=== PATIENT | female | born 1945 | race Caucasian/White ===

== ENCOUNTER 2021-12-06 10:10 | Outpatient (CLI) | payer MEDICARE, BC, SELFPAY ==
[2021-12-06 11:38] LABS: Chloride* 100 mmol/L (96-114)
[2021-12-06 11:39] LABS: Potassium* 4.4 mmol/L (3.6-5.1); Sodium* 136 mmol/L (135-149)
[2021-12-06 11:41] LABS: Creatinine* 0.7 mg/dL (0.5-1.5); Estimated Glomerular Filt Rate 90 ml/min
[2021-12-06 11:42] LABS: Blood Urea Nitrogen* 14 mg/dL (7-30); Calcium* 9.8 mg/dL (8.4-10.6); Carbon Dioxide* 31 mmol/L (20-32); Glucose* 89 mg/dL (60-115)
== END 2021-12-06 10:11 | disposition home or self-care (01) ==
LOC: NFLDREF 10:10
PROVIDERS: PCP Family Medicine; Visit Provider Family Medicine
DX: Z01.818 Encounter for other preprocedural examination (principal)
CPT/HCPCS: 80048

== ENCOUNTER 2022-03-07 13:45 | Outpatient (CLI) | payer OTHER, SELFPAY ==
--- NOTE | 2022-03-07 14:00 | CRLHL7_ITS ---
For Patients: As a result of the Cures Act, medical imaging exams and procedure reports are released immediately into your electronic medical record. You may view this report before your referring provider. If you have questions, please contact your health care provider. DXA BONE MINERAL DENSITY STUDY, 03/07/2022 Reason for exam: Asymptomatic menopausal. Screening. Current height (inches): 56.5 Weight (lbs.): 121.0 Menopause age: 51 Ethnicity: White 1. Have you had a previous hip or vertebral fracture? No. 2. Have you had any fractures during your adult life which did not result from significant trauma (e.g., auto accident)? No. 3. Did either of your parents have a hip fracture? No. 4. Do you smoke? No. 5. Have you ever taken Glucocorticoids? No. 6. Do you have rheumatoid arthritis? No. 7. Do you have secondary osteoporosis? No. 8. Do you drink 3 or more alcoholic drinks per day? No. 9. Are you being treated for osteoporosis? No. 10. Have you ever taken any of the following medications: Actonel, Evista, Fosamax, Miacalcin, Reclast, Boniva, Forteo, HRT (i.e., estrogen/hormone therapy), Protelos, Prolia, Vitamin D, Calcium, other ??? please specify. ANSWER: Yes; Fosamax, vitamin D, calcium. 11. Do you have any of the following medical conditions: Anorexia or bulimia, asthma or emphysema, end stage renal disease, hyperparathyroidism, any seizure disorders, cancer, inflammatory bowel diseases, hysterectomy, other ??? please specify. ANSWER: No. 12. What was your maximum height (inches)? 56.5. 13. Do you perform weightbearing exercise regularly? No. 14. Do you regularly consume dairy products? No. 15. Do you drink caffeinated beverages? No. 16. At what age did your period start? 13. 17. Are you premenopausal? No. 18. How many full-term pregnancies have you had? 1. 19. Have you ever missed your period for more than 6 months in a row (not including or menopause)? No. TECHNIQUE: Bone mineral density study was performed using the [employer]. FINDINGS: The results of the study expressed as bone mineral density (BMD) are as follows: Lumbar Spine L1 to L4: BMD: 0.775 g/cm2. T-score: -2.5. Z-score: -0.1. Neck Left: BMD: 0.455 g/cm2. T-score: -3.6. Z-score: -1.5. Right: BMD: 0.527 g/cm2. T-score: -2.9. Z-score: -0.8. Total Left: BMD: 0.523 g/cm2. T-score: -3.4. Z-score: -1.6. Right: BMD: 0.604 g/cm2. T-score: -2.8. Z-score: -1.0. IMPRESSION: Osteoporosis. IGLESIA RODRIGUEZ M.D. Diagnostic Radiologist [email or web address] Transcribed: 1:[address]/Dictated by: Iglesia Rodriguez MD @ 03/08/2022 10:43:00 AM (Electronically Signed)
== END 2022-03-07 13:46 | disposition home or self-care (01) ==
LOC: RAD 13:46
PROVIDERS: PCP Family Medicine; Visit Provider Family Medicine
DX: Z13.820 Encounter for screening for osteoporosis (principal); M81.0 Age-related osteoporosis without current pathological fracture; Z78.0 Asymptomatic menopausal state
CPT/HCPCS: 77080

== ENCOUNTER 2022-03-13 08:56 | Outpatient (CLI) | payer MEDICARE, OTHER, SELFPAY ==
[2022-03-13 11:44] LABS: Vitamin D 25 Hydroxy* 31 ng/mL (30-80)
== END 2022-03-13 08:57 | disposition home or self-care (01) ==
LOC: NFLDREF 08:56
PROVIDERS: PCP Family Medicine; Visit Provider Family Medicine
DX: M81.0 Age-related osteoporosis without current pathological fracture (principal)
CPT/HCPCS: 82306

== ENCOUNTER 2022-04-09 15:30 | Outpatient (RCR) | payer MEDICARE, BC, SELFPAY | END 2022-09-06 23:59 | disposition home or self-care (01) | PROVIDERS: PCP Family Medicine; Visit Provider Orthopaedic Surgery | DX: M17.12 Unilateral primary osteoarthritis, left knee (principal); Z51.89 Encounter for other specified aftercare | CPT/HCPCS: 97110; 97140; 97162; 97164 ==

== ENCOUNTER 2022-04-18 20:50 | Emergency (ER) | payer MEDICARE, SELFPAY ==
[2022-04-18] VITALS (16 sets, daily range): BP systolic 144–182; BP diastolic 77–84; PULSE 57–67; RESP 16; TEMP 35.7; O2SAT 95–99
--- NOTE | 2022-04-18 21:31 | CRLHL7_ITS ---
For Patients: As a result of the Century Cures Act, medical imaging exams and procedure reports are released immediately into your electronic medical record. You may view this report before your referring provider. If you have questions, please contact your health care provider. INDICATION: Chest pain. TECHNIQUE: Chest 1 view. COMPARISON: February 04, 2019. FINDINGS: Cardiovascular and mediastinum: Cardiomediastinal silhouette is within normal limits. Lungs and pleural spaces: Lungs are clear. No evidence of pleural effusion. No pneumothorax identified. Bones and soft tissues: Unremarkable. IMPRESSION: No acute cardiopulmonary process identified. No significant interval change. Dictated by Yamile Polanco MD @ 04/18/2022 10:09:00 PM (Electronically Signed)
[2022-04-18] MEDS: IBUPROFEN 200 MG TABLET 600 MG PO (22:03)
[2022-04-18 22:19] LABS: Chloride* 104 mmol/L (96-114); Potassium* 3.6 mmol/L (3.6-5.1); Sodium* 139 mmol/L (135-149)
[2022-04-18 22:20] LABS: Basophils Absolute Auto 0.03 K/uL (0.00-0.30); Basophils Percent Auto 0.6 % (0.0-3.0); Eosinophils Absolute Auto 0.08 K/uL (0.00-0.50); Eosinophils Percent Auto 1.6 % (0.0-7.0); Hemoglobin* 12.8 gm/dL (12.0-16.0); Immature Granulocytes Abs Auto 0.03 K/uL (0.00-0.30); Immature Granulocytes Pct Auto 0.6 %; Lymphocytes Absolute Auto 1.52 K/uL (0.90-2.90); Lymphocytes Percent Auto 30.4 % (20-44); Mean Corpuscular HGB Conc 33 gm/dL (32-36); Mean Corpuscular Hemoglobin 30 pg (26-34); Mean Corpuscular Volume 93 fL (80-100); Monocytes Percent Auto 13.8 % (0.0-11.0); Neutrophils Absolute Auto 2.65 K/uL (1.7-7.0); Platelet Count* 251 K/uL (140-440); RDW Coefficient of Variation % 12.4 % (11.5-15.5); Red Blood Count 4.21 m/uL (4.00-5.20)
[2022-04-18 22:22] LABS: Blood Urea Nitrogen* 16 mg/dL (7-30); Carbon Dioxide* 30 mmol/L (20-32); Creatinine* 0.7 mg/dL (0.5-1.5); Estimated Glomerular Filt Rate 90 ml/min; Glucose* 94 mg/dL (60-115)
[2022-04-18 22:23] LABS: Calcium* 9.5 mg/dL (8.4-10.6)
[2022-04-18 22:24] LABS: D Dimer Quantitative* 0.78 ug/ml (0.00-0.50); Slide Review Reflex No
[2022-04-18 22:30] LABS: C Reactive Protein* < 0.5 mg/dL (0.5-1.0)
[2022-04-18 22:39] LABS: NT Pro B Type NatriureticPept* 126 pg/mL; Troponin I* < 0.01 ng/mL (0.01-0.04)
--- NOTE | 2022-04-18 22:41 | CRLHL7_ITS ---
For Patients: As a result of the Century Cures Act, medical imaging exams and procedure reports are released immediately into your electronic medical record. You may view this report before your referring provider. If you have questions, please contact your health care provider. INDICATION: .Left-sided pleuritic chest pain, elevated d-dimer TECHNIQUE: CT chest PE was acquired with 95 cc Isovue 370 IV contrast. COMPARISON: None FINDINGS: Pulmonary Arteries: No CT evidence of pulmonary thromboembolic disease. No pulmonary hypertension or right ventricular strain. Heart and Mediastinum: The visualized portions of the thyroid are normal. No axillary or supraclavicular lymphadenopathy. No mediastinal, hilar or retrocrural lymphadenopathy. Normal heart size. Normal caliber aorta. Lungs and Airways: No mass or consolidation. No endoluminal lesion. Pleura: The pleural spaces are normal. Abdomen: The visualized upper abdominal organs are unremarkable. Surgical clips abutting the left kidney. Bones and soft tissues: The skeletal structures and soft tissues of the chest wall are unremarkable. IMPRESSION: 1. No CT evidence of pulmonary thromboembolic disease. 2. No intrathoracic mass or consolidation. Please note that all CT scans at this facility use dose modulation, iterative reconstruction, and/or weight-based dosing when appropriate to reduce radiation dose to as low as reasonably achievable. Dictated by Iglesia Baker MD @ 04/18/2022 11:30:19 PM (Electronically Signed)
[2022-04-18] MEDS: 0.9 % SODIUM CHLORIDE 1000 ml 1,000 ML IV (22:56)
--- NOTE | 2022-04-18 23:33 | ED_ITS ---
HPI - Chest Pain General Chief Complaint: Chest Pain Stated Complaint: Chest pains Time Seen by Provider: 04/18/22 21:10 History of Present Illness HPI narrative: 76-year-old woman presenting to the emergency department with complaint of left- sided pleuritic chest pain beginning in the change coordinator hours about 17 hours ago. Described possibly as sharp in the left low mid axillary line and seems to have progressed to the upper back/left shoulder area. No radicular symptoms otherwise. Independent of position changes. Has felt gassy and took a Prilosec. Also some Tylenol which she thinks might have been helpful. Not exactly short of breath just pleuritic is noted. No fever no cough or cold symptoms. No rashes. No neck or back pain otherwise. She does not have a history of blood clots that she is aware of. No cardiovascular disease. Related Data Home Medications Medication Instructions Recorded Confirmed propranolol 60 mg capsule,24 60 mg PO QDAY PRN 11/29/21 03/29/22 hr,extended release cholecalciferol (vitamin D3) 50 50 mcg PO QDAY 03/29/22 03/29/22 mcg (2,000 unit) capsule vitamin B complex (B 1 tab PO QDAY 03/29/22 03/29/22 Complex-Vitamin B12 tablet) Allergies Allergy/AdvReac Type Severity Reaction Status Date / Time No Known Drug Allergies Allergy Verified 04/18/22 23:17 Review of Systems Status of ROS Reports: 6 or more systems reviewed and unremarkable except as noted in History and below PFSH PFSH Medical History Cancer of kidney (2006) Cyst of ovary History of abnormal cervical Papanicolaou smear (2015) History of colonic polyps NSAID long-term use Surgical History History of colposcopy (2010) History of cryosurgery (2006) History of unilateral oophorectomy (1984) Family History Mother Valvular heart disease Sister Myocardial infarction, Onset Age: 74 Social History Narrative: , 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 NAD. Does seem mildly anxious. Slim. Skin is warm and dry. No evidence of rash or blisters. Neck is supple nontender. She is sore to palpation however in the left trapezial and periscapular musculature. Moves her arm elevating overhead without notable difficulty. She is well-perfused with equal pulses bilaterally. Lungs are clear. She is not actually splinting. No tachypnea or particularly labored breathing. Area where she has most pain though with deeper inspiration is the left low mid axillary line is demonstrated. Palpation this area does not elicit pain. Abdomen is soft protuberant nontender. No masses appreciated. CV RRR no MR G. lower extremities are without edema or pain to palpation. Negative Homans. Const Vital Signs, click to edit/add: Vital Signs - 24 hr 04/18/22 20:58 04/18/22 21:08 04/18/22 21:15 Temperature 96.2 F L Pulse Rate 61 63 Pulse Rate [Left Pulse Oximeter] 60 Respiratory Rate 16 Blood Pressure Blood Pressure [Right Upper Arm] 182/79 H Pulse Oximetry 99 98 98 Oxygen Delivery Method Room Air 04/18/22 21:21 04/18/22 21:30 04/18/22 21:59 Temperature Pulse Rate 62 62 58 L Pulse Rate [Left Pulse Oximeter] Respiratory Rate Blood Pressure 180/84 H Blood Pressure [Right Upper Arm] Pulse Oximetry 98 98 96 Oxygen Delivery Method 04/18/22 22:00 04/18/22 22:04 04/18/22 22:15 Temperature Pulse Rate 58 L 58 L 59 L Pulse Rate [Left Pulse Oximeter] Respiratory Rate Blood Pressure Blood Pressure [Right Upper Arm] Pulse Oximetry 97 97 97 Oxygen Delivery Method 04/18/22 22:30 04/18/22 22:31 Temperature Pulse Rate 57 L 61 Pulse Rate [Left Pulse Oximeter] Respiratory Rate 16 Blood Pressure 144/77 H 144/77 H Blood Pressure [Right Upper Arm] Pulse Oximetry 95 95 Oxygen Delivery Method Documenting provider has reviewed patient's vital signs: yes Course Vital Signs Vital signs: Initial Vital Signs Temperature 96.2 F L 04/18/22 20:58 Temperature Source Temporal Artery Scan 04/18/22 20:58 Pulse Rate 60 04/18/22 20:58 Pulse Rhythm 04/18/22 20:58 Respiratory Rate 16 04/18/22 20:58 Blood Pressure 182/79 H 04/18/22 20:58 Blood Pressure Mean 113 04/18/22 20:58 Pulse Oximetry 99 04/18/22 20:58 Oxygen Delivery Method 04/18/22 20:58 Vital Signs Temperature 96.2 F L 04/18/22 20:58 Pulse Rate 60 04/18/22 20:58 Respiratory Rate 16 04/18/22 20:58 Blood Pressure 182/79 H 04/18/22 20:58 Pulse Oximetry 99 04/18/22 20:58 Oxygen Delivery Method 04/18/22 20:58 Temperature 96.2 F L 04/18/22 20:58 Pulse Rate 65 04/18/22 23:32 Respiratory Rate 16 04/18/22 23:30 Blood Pressure 160/77 H 04/18/22 23:31 Pulse Oximetry 96 04/18/22 23:32 Oxygen Delivery Method 04/18/22 20:58 MDM - Chest Pain MDM Narrative Medical decision making narrative: Have concern of potential pulmonary embolus a. Seems to be reproducible chest wall pain except in the area of origin. This does have some elements of musculoskeletal/chest wall pain. There is no noted trauma. Could be pneumonia but no fever no cough or cold symptoms otherwise. Vascular disruption? Ischemic cardio vascular event. Possible dysrhythmia. Pneumothorax/pneumomediastinum. She would like some ibuprofen potentially for discomfort. Will check some labs. Chest x-ray reviewed by me is without pneumothorax or pneumomediastinum. Normal cardiac silhouette. No airspace disease appreciated. Upon reassessment is still uncomfortable but calmly reading. while I would like to dismiss this D-dimer and suspect it not representing pulmonary embolus, appears to be chest wall pain generally however elevated D-dimer is in this setting I think warranting next level imaging. The CT IV contrast as requested. Also given L of normal saline IV. I did review CT angio chest images. Do not see significant airspace disease. Radiology over-read noting no thromboembolic event. Labs overall reassuring without indication of cardiovascular injury or strain. See patient discharge information. Medical Records Data Attestation: I reviewed the patient's medical records. Lab Data Attestation: I reviewed the patient's lab results. Labs: Lab Results 04/18/22 04/18/22 04/18/22 Range/Units 21:30 21:30 21:30 WBC 5.00 (4.50-11.00) K/uL RBC 4.21 (4.00-5.20) m/uL Hgb 12.8 (12.0-16.0) gm/dL Hct 39.0 (33.0-51.0) % MCV 93 (80-100) fL MCH 30 (26-34) pg MCHC 33 (32-36) gm/dL RDW Coeff of Marky 12.4 (11.5-15.5) % Plt Count 251 (140-440) K/uL Neut % (Auto) 53.0 (42.0-72.0) % Lymph % (Auto) 30.4 (20-44) % Childress % (Auto) 13.8 H (0.0-11.0) % Eos % (Auto) 1.6 (0.0-7.0) % Baso % (Auto) 0.6 (0.0-3.0) % Neut # (Auto) 2.65 (1.7-7.0) K/uL Lymph # (Auto) 1.52 (0.90-2.90) K/uL Childress # (Auto) 0.70 (0.00-0.90) K/UL Eos # (Auto) 0.08 (0.00-0.50) K/uL Baso # (Auto) 0.03 (0.00-0.30) K/uL D-Dimer Quant (PE/DVT) 0.78 H (0.00-0.50) ug/ml Sodium 139 (135-149) mmol/L Potassium 3.6 (3.6-5.1) mmol/L Chloride 104 (96-114) mmol/L Carbon Dioxide 30 (20-32) mmol/L BUN 16 (7-30) mg/dL Creatinine 0.7 (0.5-1.5) mg/dL Estimated GFR 90 ml/min Glucose 94 (60-115) mg/dL Calcium 9.5 (8.4-10.6) mg/dL Troponin I < 0.01 L (0.01-0.04) ng/mL C-Reactive Protein < 0.5 L (0.5-1.0) mg/dL NT-Pro-B Natriuret Pep 126 pg/mL ECG Data Attestation: I personally reviewed and interpreted this ECG as follows: (Normal sinus rhythm rate of 62 without ischemic changes) Discharge Plan Discharge Clinical Impression: Pleuritic chest pain, Chest wall pain Patient Disposition: Home w/ Parent or Adult Condition: Stable Additional Instructions: See handout on exercises/stretches that you might do for your upper back. I would consider doing these daily going forward. Consider taking ibuprofen perhaps 600 mg 2-3 times daily or naproxen up to 500 mg twice daily over the next 4-5 days. Might be good to take it with a little food. Stay well-hydrated. Return for increasing/uncontrolled pain, increasing shortness of breath, lightheadedness. Prescriptions: No Action propranolol 60 mg capsule,extended release 24 hr 60 mg PO QDAY PRN vitamin B complex [B Complex-Vitamin B12] Tablet 1 tab PO QDAY cholecalciferol (vitamin D3) 50 mcg (2,000 unit) capsule 50 mcg PO QDAY Follow Up/Referrals: Cesia Mendosa MD [Primary Care Provider] - Stand Alone Forms: [employer] Info Instructions
== END 2022-04-19 00:28 | disposition home or self-care (01) ==
PROVIDERS: Emergency Provider Family Medicine; PCP Family Medicine
DX: R07.89 Other chest pain (principal)
CPT/HCPCS: 36415; 71045; 71260; 80048; 83880; 84484; 85025; 85379; 86140; 93005; 94761; 96360; 99284; 99285; A9270; J7030; Q9967

== ENCOUNTER 2022-10-24 14:44 | Emergency (ER) | payer MEDICARE, SELFPAY ==
[2022-10-24] VITALS (25 sets, daily range): BP systolic 132–173; BP diastolic 74–163; PULSE 66–83; RESP 16; TEMP 36.4; O2SAT 97–100; BMI 19.9
--- NOTE | 2022-10-24 15:14 | CRLHL7_ITS ---
For Patients: As a result of the Century Cures Act, medical imaging exams and procedure reports are released immediately into your electronic medical record. You may view this report before your referring provider. If you have questions, please contact your health care provider. INDICATION: Chest pain COMPARISON: April 18, 2022 TECHNIQUE: Two views of the chest were acquired FINDINGS: TUBES AND LINES: None. HEART AND MEDIASTINUM: The heart size is normal. The mediastinal contour appears normal for patient age. LUNGS AND PLEURAL SPACES: The lungs appear normal.The pleural spaces are unremarkable. OSSEOUS STRUCTURES: Age-appropriate appearance. No acute focal finding. IMPRESSION: No evidence of active pulmonary disease Dictated by Chito Perez MD @ 10/24/2022 5:51:44 PM (Electronically Signed)
[2022-10-24 15:36] LABS: Basophils Absolute Auto 0.03 K/uL (0.00-0.30); Basophils Percent Auto 0.5 % (0.0-3.0); Eosinophils Absolute Auto 0.09 K/uL (0.00-0.50); Eosinophils Percent Auto 1.4 % (0.0-7.0); Hematocrit 38.7 % (33.0-51.0); Hemoglobin* 12.8 gm/dL (12.0-16.0); Immature Granulocytes Abs Auto 0.04 K/uL (0.00-0.30); Immature Granulocytes Pct Auto 0.6 %; Lymphocytes Percent Auto 19.7 % (20-44); Mean Corpuscular HGB Conc 33 gm/dL (32-36); Mean Corpuscular Hemoglobin 31 pg (26-34); Mean Corpuscular Volume 94 fL (80-100); Monocytes Percent Auto 13.6 % (0.0-11.0); Neutrophils Absolute Auto 4.14 K/uL (1.7-7.0); Neutrophils Percent Auto 64.2 % (42.0-72.0); Platelet Count* 270 K/uL (140-440); RDW Coefficient of Variation % 12.6 % (11.5-15.5); Red Blood Count 4.14 m/uL (4.00-5.20); White Blood Count* 6.45 K/uL (4.50-11.00)
[2022-10-24] MEDS: FAMOTIDINE 20 MG TABLET PO (15:43)
[2022-10-24] MEDS: PANTOPRAZOLE SODIUM 40 MG INJ IVP (15:43)
[2022-10-24 15:44] LABS: Slide Review Reflex No
--- NOTE | 2022-10-24 15:51 | ED_ITS ---
HPI - General Adult General Date Seen: 10/24/22 Chief complaint: Chest Pain Stated complaint: Chesty pain, pressure, shortness of breath Time Seen by Provider: 10/24/22 14:59 Source: patient Mode of arrival: ambulatory Limitations: no limitations History of Present Illness HPI narrative: Patient is a 76-year-old female with history of gastric reflux presenting to the emergency department for chest pain for the past 3 weeks. She describes it as usually being he dull ache in her chest that appointment in the meantime severe and describes it as a burning sensation. States she has had symptoms like this before with a gastric reflux but they have not been this bad before. She states usually antacids help her symptoms but they are not open them currently. States right now the pain is better is only a dull sensation. She spoke to her GI specialist and she was told to see a primary care provider to rule out cardiac issues who was she spoke to a primary care provider issues since emergency department for evaluation. She has no history of any heart disease and is a nonsmoker. She currently only takes propanolol for a tremor. Denies fevers, chills, abdominal pain, weakness, numbness, for headache, lightheadedness, dizziness. States she will get short of breath whenever the pain worsens. No history of blood clots. Related Data Home Medications Medication Instructions Recorded Confirmed propranolol 60 mg capsule,24 60 mg PO QDAY PRN 11/29/21 03/29/22 hr,extended release cholecalciferol (vitamin D3) 50 50 mcg PO QDAY 03/29/22 03/29/22 mcg (2,000 unit) capsule vitamin B complex (B 1 tab PO QDAY 03/29/22 03/29/22 Complex-Vitamin B12 tablet) Allergies Allergy/AdvReac Type Severity Reaction Status Date / Time No Known Drug Allergies Allergy Verified 10/24/22 17:02 Review of Systems Status of ROS: Reports: 10 or more systems reviewed and unremarkable except as noted in History and below [facility] Medical History Cancer of kidney (2006) ?C64.9 - Malignant neoplasm of unspecified kidney, except renal pelvis (ICD- 10) NSAID long-term use ?Z79.1 - penitentiary (current) use of non-steroidal anti-inflammatories (NSAID) (ICD-10) History of colonic polyps ?Z86.010 - Personal history of colonic polyps (ICD-10) History of abnormal cervical Papanicolaou smear (2016) ?Z87.42 - Personal history of other diseases of the female genital tract (ICD-10) Cyst of ovary ?N83.209 - Unspecified ovarian cyst, unspecified side (ICD-10) Surgical History History of unilateral oophorectomy (1984) ?Z90.721 - Acquired absence of ovaries, unilateral (ICD-10) History of cryosurgery (2006) ?Z98.890 - Other specified postprocedural states (ICD-10) History of colposcopy (2010) ?Z98.890 - Other specified postprocedural states (ICD-10) Family History Mother Valvular heart disease Sister Myocardial infarction, Onset Age: 74 Social History Narrative: , 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, 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 Non-smoker- quit 1976, 5 pack years Social drinker- 4/ week Does not have regular exercise regimen, yoga Smoking Status: Former smoker Do you use any of these nicotine containing products: None Second hand tobacco smoke exposure: No How often do you have a drink containing alcohol: 2-4 times a month How many standard drinks containing alcohol do you have on a typical day: 1 or 2 How often do you have six or more drinks on one occasion: Never AUDIT-C Alcohol total score: 2 Non-prescribed substance use: denies use service: No Exam Narrative: Exam Narrative: Const: Well-nourished, Well-developed, in mild distress Eyes: PERRL, no conjunctival injection, and symmetrical lids ENMT: Atraumatic external nose and ears. Moist mucous membranes. Neck: Symmetric, trachea midline, No thyromegaly. CVS: RRR, No murmurs or gallops. Peripheral pulses 2+ and equal in all extremities RESP: Unlabored respiratory effort. Clear to auscultation bilaterally. GI: Nontender/Nondistended, No rebound or guarding. MSK:Extremities w/o deformity, Normal Active ROM Skin: Warm, Dry. No rashes or lesions. Neuro: Normal Muscle tone, No focal neurological deficits. Psych: Awake, Alert, & Oriented x3. Appropriate mood and affect. Const: Vital Signs, click to edit/add: Vital Signs - 24 hr 10/24/22 14:54 10/24/22 15:05 10/24/22 15:07 Temperature 97.5 F L Pulse Rate 75 75 Pulse Rate [Right Pulse Oximeter] 77 Respiratory Rate 16 Blood Pressure 139/74 Blood Pressure [Ri ght Upper Arm] 144/84 H Pulse Oximetry 98 98 [facility] 10/24/22 15:15 10/24/22 15:30 10/24/22 15:32 Temperature Pulse Rate 72 72 74 Pulse Rate [Right Pulse Oximeter] Respiratory Rate Blood Pressure 138/81 Blood Pressure [Ri ght Upper Arm] Pulse Oximetry 97 98 98 Oxygen Delivery Az thod 10/24/22 15:45 10/24/22 16:00 10/24/22 16:02 Temperature Pulse Rate 74 72 72 Pulse Rate [Right Pulse Oximeter] Respiratory Rate Blood Pressure 155/80 H Blood Pressure [Ri ght Upper Arm] Pulse Oximetry 100 99 99 Oxygen Delivery Az thod 10/24/22 16:15 10/24/22 16:32 10/24/22 16:33 Temperature Pulse Rate 74 72 Pulse Rate [Right Pulse Oximeter] Respiratory Rate Blood Pressure 173/163 H Blood Pressure [Ri ght Upper Arm] Pulse Oximetry 99 98 Oxygen Delivery Az thod 10/24/22 16:34 10/24/22 16:56 10/24/22 17:02 Temperature Pulse Rate 73 75 Pulse Rate [Right Pulse Oximeter] Respiratory Rate Blood Pressure 147/90 H 157/96 H Blood Pressure [Ri ght Upper Arm] Pulse Oximetry 98 97 Oxygen Delivery Az thod 10/24/22 17:10 10/24/22 17:15 10/24/22 17:26 Temperature Pulse Rate 75 73 73 Pulse Rate [Right Pulse Oximeter] Respiratory Rate Blood Pressure 150/110 H Blood Pressure [Ri ght Upper Arm] Pulse Oximetry 98 98 98 Oxygen Delivery Az thod 10/24/22 17:30 10/24/22 17:32 Temperature Pulse Rate 83 Pulse Rate [Right Pulse Oximeter] Respiratory Rate Blood Pressure 165/98 H Blood Pressure [Ri ght Upper Arm] Pulse Oximetry 97 Oxygen Delivery Me thod Course Vital Signs Vital signs: Initial Vital Signs Temperature 97.5 F L 10/24/22 14:54 Temperature Source Temporal Artery Scan 10/24/22 14:54 Pulse Rate 77 10/24/22 14:54 Pulse Rhythm Regular 10/24/22 14:54 Respiratory Rate 16 10/24/22 14:54 Blood Pressure 144/84 H 10/24/22 14:54 Blood Pressure Mean 104 10/24/22 14:54 Blood Pressure Position Sitting 10/24/22 14:54 Pulse Oximetry 98 10/24/22 14:54 Oxygen Delivery Method Room Air 10/24/22 14:54 Vital Signs Temperature 97.5 F L 10/24/22 14:54 Pulse Rate 77 10/24/22 14:54 Respiratory Rate 16 10/24/22 14:54 Blood Pressure 144/84 H 10/24/22 14:54 Pulse Oximetry 98 10/24/22 14:54 Oxygen Delivery Method Room Air 10/24/22 14:54 Temperature 97.5 F L 10/24/22 14:54 Pulse Rate 83 10/24/22 17:30 Respiratory Rate 16 10/24/22 14:54 Blood Pressure 165/98 H 10/24/22 17:32 Pulse Oximetry 97 10/24/22 17:30 Oxygen Delivery Method Room Air 10/24/22 14:54 Medical Decision Making MDM Narrative Medical decision making narrative: Patient is a 76-year-old female with a history of gastric reflux presenting to the emergency department for chest pain. States the pains have gone on for 3 weeks now and intermittently gets severe occasionally she describes as a burning sensation. She says the pain radiated to her bilateral shoulders and back. Has no previous cardiac issues she states. At this time we will treat her for GERD and do a cardiac workup due to her symptoms. D-dimer also ordered. Maalox did not help with her symptoms. CBC showed no concerning abnormalities. CMP showed no concerning abnormalities. COVID/flu/RSV were negative. Lipase is within normal limits. Her D-dimer is 0.89 and a CTA was ordered. Patient's troponin returned at 2.16. Reviewed her EKGs there is very minimal elevations and he the anterior leads but they are both less than 1 small box and heights and do not directly meet criteria for STEMI. Due to the elevation though she likely is suffering from an NSTEMI. I have informed her of this and told her we would need to Dr. Admitting Officer and possibly transfer. She states she would prefer to go to the [facility]. 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 I spoke to Dr. Elliott of Cardiology at [facility]. He reviewed the patient's EKGs and lab work. At this time we agreement that she has a borderline EKG and does not quite meet criteria for STEMI but needs to be closely monitored in case anything changes. He agrees with transfer to their facility and to start aspirin and heparin. These have been ordered. Patient is agreeable to this plan. CTA is pending at this time but the image has been taken and will be sent on the desk. Lab Data Labs: Lab Results 10/24/22 10/24/22 10/24/22 Range/Units 15:14 15:20 15:25 WBC 6.45 (4.50-11.00) K/uL RBC 4.14 (4.00-5.20) m/uL Hgb 12.8 (12.0-16.0) gm/dL Hct 38.7 (33.0-51.0) % MCV 94 (80-100) fL MCH 31 (26-34) pg MCHC 33 (32-36) gm/dL RDW Coeff of Marky 12.6 (11.5-15.5) % Plt Count 270 (140-440) K/uL Neut % (Auto) 64.2 (42.0-72.0) % Lymph % (Auto) 19.7 L (20-44) % [place] % (Auto) 13.6 H (0.0-11.0) % Eos % (Auto) 1.4 (0.0-7.0) % Baso % (Auto) 0.5 (0.0-3.0) % Neut # (Auto) 4.14 (1.7-7.0) K/uL Lymph # (Auto) 1.30 (0.90-2.90) K/uL [place] # (Auto) 0.90 (0.00-0.90) K/UL Eos # (Auto) 0.09 (0.00-0.50) K/uL Baso # (Auto) 0.03 (0.00-0.30) K/uL Abs Immat Gran (auto) 0.04 (0.00-0.30) K/uL Imm/Tot Granulo (auto) 0.6 % INR 0.94 (0.91-1.10) APTT 32 (23-33) Seconds D-Dimer Quant (PE/DVT) 0.89 H (0.00-0.50) ug/ml Sodium 137 (135-149) mmol/L Potassium 3.9 (3.6-5.1) mmol/L Chloride 104 (96-114) mmol/L Carbon Dioxide 27 (20-32) mmol/L Anion Gap 6 L (7-15) mEq/L BUN 16 (7-30) mg/dL Creatinine 0.6 (0.5-1.5) mg/dL Estimated Creat Clear 42.81 Estimated GFR 94 ml/min Glucose 95 (60-115) mg/dL Calcium 9.8 (8.4-10.6) mg/dL Total Bilirubin 0.5 (0.1-1.5) mg/dL AST 43 H (12-35) U/L ALT 25 (4-35) U/L Alkaline Phosphatase 141 (40-150) U/L Troponin I 2.16 H* (0.01-0.04) ng/mL Total Protein 7.6 (6.0-8.3) g/dL Albumin 4.4 (3.3-5.0) g/dL Lipase 113 (23-300) U/L SARS-CoV-2 (PCR) Negative SARS-CoV-2 (Negative) Influenza Type A (PCR) Negative PCR FLU A (Negative) Influenza Type B (PCR) Negative PCR FLU B (Negative) RSV (PCR) Negative PCR RSV (Negative) Discharge Plan Discharge Clinical Impression: Acute non-ST elevation myocardial infarction (NSTEMI) Patient Disposition: Xfer [facility] Discharge Location: [facility] Condition: Stable Prescriptions: No Action propranolol 60 mg capsule,extended release 24 hr 60 mg PO QDAY PRN vitamin B complex [B Complex-Vitamin B12] Tablet 1 tab PO QDAY cholecalciferol (vitamin D3) 50 mcg (2,000 unit) capsule 50 mcg PO QDAY Stand Alone Forms: MyHealth Info Instructions
[2022-10-24 15:52] LABS: Albumin* 4.4 g/dL (3.3-5.0)
[2022-10-24 15:53] LABS: Chloride* 104 mmol/L (96-114); Potassium* 3.9 mmol/L (3.6-5.1); Sodium* 137 mmol/L (135-149)
[2022-10-24 15:55] LABS: Alkaline Phosphatase* 141 U/L (40-150); Anion Gap 6 mEq/L (7-15); Aspartate Amino Transferase* 43 U/L (12-35); Bilirubin Total* 0.5 mg/dL (0.1-1.5); Blood Urea Nitrogen* 16 mg/dL (7-30); Carbon Dioxide* 27 mmol/L (20-32); Creatinine* 0.6 mg/dL (0.5-1.5); Est. Creatinine Clearance* 42.81; Estimated Glomerular Filt Rate 94 ml/min; Total Protein* 7.6 g/dL (6.0-8.3)
[2022-10-24 15:56] LABS: Alanine Aminotransferase* 25 U/L (4-35); Calcium* 9.8 mg/dL (8.4-10.6); Glucose* 95 mg/dL (60-115); Lipase* 113 U/L (23-300)
[2022-10-24] MEDS: lidocaine HCL 4 % TOP SOLN 50 ML BOTTLE 7.5 ML PO (16:08)
[2022-10-24] MEDS: MAG HYDROX/ALUMINUM HYD/SIMETH 30 ML ORAL.SUSP 15 ML PO (16:08)
[2022-10-24 16:09] LABS: D Dimer Quantitative* 0.89 ug/ml (0.00-0.50)
[2022-10-24 16:11] LABS: Troponin I* 2.16 ng/mL (0.01-0.04)
--- NOTE | 2022-10-24 16:15 | CRLHL7_ITS ---
For Patients: As a result of the Century Cures Act, medical imaging exams and procedure reports are released immediately into your electronic medical record. You may view this report before your referring provider. If you have questions, please contact your health care provider. INDICATION: Chest pain, shortness of breath, elevated D-dimer.. TECHNIQUE: CT chest PE was acquired with 95 cc Isovue 370 IV contrast. COMPARISON: None. FINDINGS: Heart and vasculature: Contrast opacification of the pulmonary arterial tree is adequate. No sign of pulmonary embolism. Heart size is mildly enlarged. Thoracic aorta and pulmonary artery are normal in caliber.Coronary artery calcifications are noted. Lungs and pleura: No suspicious nodules or infiltrates. 4 millimeter nodule in the right upper lobe (4/73) additional tiny 2-3 millimeter nodules are noted bilaterally. Minimal bilateral dependent atelectasis. No pleural effusions, pleural thickening, or pneumothorax. Lymph nodes/mediastinum: No mediastinal, hilar, or axillary adenopathy. Chest wall: No masses. Upper abdomen: No acute or significant findings. Bones: Unremarkable for age. IMPRESSION: No pulmonary embolism identified. No acute cardiopulmonary process identified. Please note that all CT scans at this facility use dose modulation, iterative reconstruction, and/or weight-based dosing when appropriate to reduce radiation dose to as low as reasonably achievable. Dictated by Yamile Polanco MD @ 10/24/2022 6:33:06 PM (Electronically Signed)
[2022-10-24 16:17] LABS: PCR FLU A Negative PCR FLU A (Negative); PCR FLU B Negative PCR FLU B (Negative); PCR RSV Negative PCR RSV (Negative)
[2022-10-24 16:20] LABS: SARS PCR* Negative SARS-CoV-2 (Negative)
[2022-10-24] MEDS: ASPIRIN 81 MG TAB.CHEW 324 MG PO (16:36)
[2022-10-24 17:10] LABS: INR 0.94 (0.91-1.10); Prothrombin Time 13.1 Seconds
[2022-10-24 17:11] LABS: Partial Thromboplastin Time* 32 Seconds (23-33)
[2022-10-24] MEDS: HEPARIN 25,000 UNIT/500 ML BAG 14 UNIT IV (17:15)
[2022-10-24] MEDS: HEPARIN 5,000 UNIT/0.5 ML INJ 3300 UNIT IVP (17:16)
--- NOTE | 2022-10-24 17:25 | PC.NURSE ---
Heparin infusing at 700 units / hr after a 4000 unit bolus. [facility] has accepted her for admissions. Report has been given to Diana and patient room number will be [id number]. EMS has been paged for transfer and estimated time of EMS arrival is 1800.
--- NOTE | 2022-10-24 19:58 | PC.NURSE ---
[facility] Sampler in chart to send image results to [facility] as patient was transfered there and results were not back prior to transfer.
== END 2022-10-24 18:48 | disposition short-term general hospital (02) ==
PROVIDERS: Emergency Provider Student in an Organized Health Care Education/Training Program; PCP Family Medicine
DX: I21.4 Non-ST elevation (NSTEMI) myocardial infarction (principal)
CPT/HCPCS: 36415; 71046; 71275; 80053; 83690; 84484; 85025; 85027; 85379; 85610; 85730; 87631; 93005; 96374; 96375; 99283; 99285; A9270; C9113; J1644; Q9967

== ENCOUNTER 2022-10-24 18:35 | Outpatient (CLI) | payer MEDICARE, SELFPAY | END 2022-10-24 18:36 | disposition home or self-care (01) | LOC: AMB 10-26 15:49 | PROVIDERS: PCP Family Medicine; Visit Provider Student in an Organized Health Care Education/Training Program | DX: R07.89 Other chest pain (principal) | CPT/HCPCS: A0425; A0434 ==

== ENCOUNTER 2022-11-02 10:02 | Outpatient (CLI) | payer MEDICARE, SELFPAY | END 2022-11-02 10:03 | disposition home or self-care (01) | LOC: NFLDREF 10:03 | PROVIDERS: PCP Family Medicine; Visit Provider Family Medicine | DX: I21.4 Non-ST elevation (NSTEMI) myocardial infarction (principal); Z95.5 Presence of coronary angioplasty implant and graft | CPT/HCPCS: 80048 ==